=== PATIENT | female | born 1990 | race Caucasian/White ===

== ENCOUNTER 2023-12-08 22:29 | Emergency (ER) | payer OTHER ==
[~2023-12-08] VITALS: Ht 172.7 cm; Wt 70.3 kg
[2023-12-09] MEDS ORDERED: MEPERIDINE HCL/PF 50 MG/ML VIAL IM STA (01:02)
[2023-12-09] MEDS ORDERED: RINGERS SOLUTION,LACTATED 1,000 ML IV STA (01:02)
[2023-12-09] MEDS ORDERED: PROMETHAZINE HCL 50 MG/ML AMPUL IM STA (01:03)
[2023-12-09] MEDS ORDERED: HYOSCYAMINE SULFATE 0.125 MG TAB.SUBL SL ONE (01:15)
[2023-12-09 02:33] LABS: HEMATOCRIT 40.1 % (36.0-45.00); HEMOGLOBIN 13.3 g/dL (12.0-15.00); MEAN CORPUSCULAR HEMOGLOBIN 31.2 pg (27.00-32.0); MEAN CORPUSCULAR HGB CONC 33.2 g/dl (32.0-36.0); PLATELET COUNT 244 K/uL (150-450); RED BLOOD COUNT 4.26 M/uL (4.00-6.00); RED CELL DISTRIBUTION WIDTH 12.8 % (11.5-14.5)
[2023-12-09 02:39] LABS: URINE APPEARANCE Cloudy; URINE BILIRRUBIN Negative (NEGATIVE); URINE BLOOD Negative; URINE COLOR Yellow; URINE GLUCOSE Negative (NEGATIVE); URINE LEUKOCYTE Trace; URINE NITRATE Negative; URINE PROTEIN Trace (NEGATIVE)
[2023-12-09 02:43] LABS: URINE BACTERIA 3238.1 uL (0.0-1933); URINE RBC 10.6 uL (0.0-20.8); URINE WBC 23.6 uL (0.0-23.2)
[2023-12-09 02:48] LABS: INR 1.1; PARTIAL THROMBOPLASTIN TIME 29.3 SECONDS (22.0-34.0); PROTHROMBIN TIME 11.9 SECONDS (9.0-11.5)
[2023-12-09 02:50] LABS: URINE CAST 0.45 uL (0.0-1.40); URINE KETONE 40 (NEGATIVE)
[2023-12-09 02:54] LABS: BILIRUBIN TOTAL 1.37 mg/dL (0.3-1.2); CALCIUM 8.9 mg/dL (8.5-10.1); CREATININE SERUM 1.02 mg/dL (0.55-1.02); GFR 62.03; GLOBULINA 3.4 G/DL (2.4-3.5); POTASSIUM 3.54 mEq/L (3.5-5.1); TOTAL PROTEIN 7.4 gm/dL (6.4-8.2)
== END 2023-12-09 08:11 | disposition home or self-care (01) ==
LOC: ER 22:31
DX: K59.01 Slow transit constipation (principal); R10.31 Right lower quadrant pain; R10.9 Unspecified abdominal pain; Z88.6 Allergy status to analgesic agent
CPT/HCPCS: 36415; 74177; Q9965